=== PATIENT | female | born 1995 | race Caucasian/White ===

== ENCOUNTER 2017-11-21 20:14 | Emergency (ER) | payer OTHER ==
[~2017-11-21] VITALS: Ht 170.2 cm; Wt 111.0 kg
[2017-11-21 20:23] VITALS: BP 147/104
== END 2017-11-22 01:39 | disposition left against medical advice (07) ==
LOC: ER 20:15
DX: F41.9 Anxiety disorder, unspecified (principal); Z53.21 Procedure and treatment not carried out due to patient leaving prior to being seen by health care provider